=== PATIENT | male | born 2000 | race Caucasian/White ===

== ENCOUNTER 2022-08-23 23:25 | Emergency (ER) | payer OTHER ==
[2022-08-23] MEDS ORDERED: fentaNYL 50 MCG/ML SDV ONE (23:27)
[2022-08-23] MEDS ORDERED: Ketamine 500 mg/10 ML MDV ONE (23:27)
[2022-08-23] MEDS ORDERED: fentaNYL/Normal Saline 250 ML ONE (23:34)
[2022-08-23] MEDS ORDERED: fentaNYL 100 MCG/2 ML SDV ONE ×2 (23:35→23:36)
[2022-08-23 23:41] LABS: BASOPHILS PERCENT AUTO 0.2 % (0.0-1.5); EOSINOPHILS ABSOLUTE AUTO 0.1 K/uL (0.0-0.7); EOSINOPHILS PERCENT AUTO 0.5 % (0.0-7.0); HEMATOCRIT 46.2 % (38.0-50.0); HEMOGLOBIN 16.6 g/dL (13.0-17.0); LYMPHOCYTES ABSOLUTE AUTO 5.1 K/uL (0.6-2.4); MEAN CORPUSCULAR HEMOGLOBIN 31.5 pg (27.0-32.0); MEAN CORPUSCULAR HGB CONC 35.9 g/dL (31.0-37.0); MEAN CORPUSCULAR VOLUME 87.7 fL (80.0-98.0); MONOCYTES ABSOLUTE AUTO 0.7 K/uL (0.0-0.8); MONOCYTES PERCENT AUTO 5.2 % (0.0-15.0); NEUTROPHILS ABSOLUTE AUTO 6.9 K/uL (1.4-5.7); NEUTROPHILS PERCENT AUTO 54.1 % (48.0-80.0); NRBC ABSOLUTE 0 K/uL; PLATELET COUNT,PLT 233 K/uL (150-400); RED BLOOD CELL COUNT 5.27 M/uL (4.50-5.90); WHITE BLOOD CELL COUNT,WBC 12.74 K/uL (4.0-11.0)
[2022-08-23] MEDS ORDERED: Diphtheria/Tetanus Toxoids,Adult (Td) 0.5 ML Syringe IM ONE (23:42)
[2022-08-23 23:53] LABS: BILIRUBIN,URINE NEGATIVE (NEGATIVE); GLUCOSE,URINE 100 mg/dL (NEGATIVE); KETONES,URINE 15 mg/dL (NEGATIVE); LEUKOCYTE ESTERASE,URINE SMALL (NEGATIVE); NITRITE,URINE POSITIVE (NEGATIVE); OCCULT BLOOD,URINE LARGE (NEGATIVE); PH,URINE 7.5 (5.0-8.0); PROTEIN,URINE >=300 mg/dL (NEGATIVE)
[2022-08-23 23:54] LABS: A/G RATIO 1.2 (0.9-1.6); ALBUMIN 3.9 g/dL (3.4-5.0); BILIRUBIN TOTAL 0.4 mg/dL (0.2-1.0); CALCIUM 8.4 mg/dL (8.5-10.1); CARBON DIOXIDE,CO2 26.3 mmol/L (21.0-32.0); CREATININE 1.5 mg/dL (0.8-1.3); INR 1.02 (0.86-1.11); POTASSIUM,K 3.6 mmol/L (3.5-5.1); PROTEIN TOTAL,TP 7.1 g/dL (6.4-8.2)
[2022-08-23 23:58] LABS: LACTIC ACID 2.4 mmol/L (0.4-2.0)
[2022-08-24 00:03] LABS: APPEARANCE,URINE CLOUDY; COLOR,URINE RED
[2022-08-24 00:05] LABS: EST CRCL DRUG DOSING (CG) 79.76 mL/min
[2022-08-24 00:05] LABS: AMPHETAMINES SCREEN, URINE NEGATIVE (CUTOFF=500); BARBITURATE SCREEN,URINE NEGATIVE (CUTOFF=200); BENZODIAZEPINES SCREEN,URINE NEGATIVE (CUTOFF=150); BUPRENORPHINE SCREEN,URINE NEGATIVE (CUTOFF=10); METHADONE SCREEN, URINE NEGATIVE (CUTOFF=200); METHAMPHETAMINES SCREEN, URINE NEGATIVE (CUTOFF=500); OXYCODONE SCREEN,URINE NEGATIVE (CUT0FF=100); PCP SCREEN,URINE NEGATIVE (CUTOFF=25); PROPOXYPHENE SCREEN,URINE NEGATIVE (CUTOFF=300); THC SCREEN,URINE 20 NG/ML NEGATIVE (CUTOFF=50)
[2022-08-24 00:20] LABS: BACTERIA,URINE FEW (NEGATIVE); EPITHELIAL CELLS,URINE OCCASIONAL (NONE-FEW); RBC,URINE TOO NUMEROUS TO CT (0-2/HPF); WBC,URINE 0-5 (0-5/HPF)
[2022-08-24] MEDS ORDERED: Diphtheria,Pertussis(Acell),Tetanus Vaccine 0.5 ML Syringe ONE (00:23)
[2022-08-24 00:24] LABS: BASE EXCESS ARTERIAL -6.2 (-2.0-3.0); BICARBONATE,ARTERIAL 20 mEq/L (22-26); PCO2 ARTERIAL 38 mmHG (35-45)
[2022-08-24] MEDS ORDERED: fentaNYL/Normal Saline 2,500 MCG in Premix Bag 1 BAG IV PRN (00:26)
[2022-08-24 00:31] LABS: PO2 ARTERIAL > 488 mmHG (80-105)
[2022-08-24] MEDS ORDERED: fentaNYL 100 MCG/2 ML SDV IVPUSH ONE ×2 (00:32→07:37)
[2022-08-24] MEDS ORDERED: Ketamine 500 mg/10 ML MDV IV ONE (00:34)
[2022-08-24] MEDS ORDERED: Sodium Chloride 0.9% 1,000 ML IV STA (00:36)
[2022-08-24] MEDS ORDERED: Etomidate 2 MG/ML 20 ML SDV IVPUSH ONE (01:00)
[2022-08-24] MEDS ORDERED: Rocuronium 100 MG/10 ML MDV ONE (01:00)
[2022-08-24] MEDS ORDERED: fentaNYL 100 MCG/2 ML SDV ONE ×2 (01:48→03:12)
[2022-08-24] MEDS ORDERED: fentaNYL 100 MCG/2 ML SDV IVPUSH STA (01:49)
[2022-08-24] MEDS ORDERED: Propofol 200 MG/20 ML SDV ONE (01:51)
[2022-08-24] MEDS ORDERED: propofoL 100 ML ONE (01:51)
[2022-08-24] MEDS ORDERED: propofoL 100 ML IV SCH (02:00)
[2022-08-24] MEDS ORDERED: Propofol 200 MG/20 ML SDV IVPUSH ONE (07:41)
== END 2022-08-24 03:30 ==
LOC: MW.ED 23:25 → EDBD 23:25 → MW.ED 08-24 03:30
DX: S32.511A Fracture of superior rim of right pubis, initial encounter for closed fracture (principal); Z23 Encounter for immunization; V09.3XXA Pedestrian injured in unspecified traffic accident, initial encounter
CPT/HCPCS: 27250; 31500; 36415; 36600; 51702; 70450; 71045; 71260; 72125; 72170; 74177; 80053; 80305; 80307; 81001; 82803; 83605; 85025; 85610; 85730; 86850; 86900; 86901; 86920; 90471; 90715; 96365; 96366; 96375; 96376; 99291; G0390; J2704; J3010; J3490; J7030; 36430; 99292; P9016

== ENCOUNTER 2022-09-12 18:45 | Emergency (ER) | payer OTHER ==
[2022-09-12 19:49] LABS: APPEARANCE,URINE SLT CLOUDY; BILIRUBIN,URINE NEGATIVE (NEGATIVE); COLOR,URINE YELLOW; GLUCOSE,URINE NEGATIVE (NEGATIVE); KETONES,URINE NEGATIVE (NEGATIVE); LEUKOCYTE ESTERASE,URINE NEGATIVE (NEGATIVE); NITRITE,URINE NEGATIVE (NEGATIVE); OCCULT BLOOD,URINE LARGE (NEGATIVE); PROTEIN,URINE 30 mg/dL (NEGATIVE)
[2022-09-12 20:02] LABS: AMORPHOUS SEDIMENT,URINE MODERATE (NEGATIVE); BACTERIA,URINE 2+ (NEGATIVE); CALCIUM OXALATE CRYSTALS,URINE FEW (NEGATIVE); EPITHELIAL CELLS,URINE RARE (NONE-FEW)
[2022-09-12] MEDS ORDERED: Sulfamethoxazole/Trimethoprim 800-160 MG Tab PO ONE (20:10)
== END 2022-09-12 20:45 | disposition home or self-care (01) ==
LOC: MW.ED 18:45
DX: N39.0 Urinary tract infection, site not specified (principal); Z79.899 Other long term (current) drug therapy
CPT/HCPCS: 81001; 99283; A9270

== ENCOUNTER 2022-09-30 14:05 | Emergency (ER) | payer OTHER | END 2022-09-30 17:05 | disposition home or self-care (01) | LOC: MW.ED 14:05 | DX: R10.2 Pelvic and perineal pain (principal); M54.50 Low back pain, unspecified | CPT/HCPCS: 99283 ==

== ENCOUNTER 2024-02-01 03:44 | Emergency (ER) | payer SELFPAY | END 2024-02-01 04:22 | LOC: MW.ED 03:44 | DX: Z02.89 Encounter for other administrative examinations (principal); F10.120 Alcohol abuse with intoxication, uncomplicated; F17.210 Nicotine dependence, cigarettes, uncomplicated; Z79.899 Other long term (current) drug therapy; Y90.9 Presence of alcohol in blood, level not specified | CPT/HCPCS: 99283 ==

== ENCOUNTER 2024-12-20 20:02 | Emergency (ER) | payer SELFPAY ==
[2024-12-20] MEDS: Orphenadrine 60 MG/2 ML Inj IM ONE (20:48)
[2024-12-20] MEDS: Ketorolac 30 MG/ML SDV IM ONE (20:48)
[2024-12-20] MEDS: Dexamethasone Sod Phos Preservative Free 10 MG/ML Vial IM ONE (20:49)
== END 2024-12-20 21:32 | disposition home or self-care (01) ==
LOC: MW.ED 20:02
DX: M51.26 Other intervertebral disc displacement, lumbar region (principal); Z75.3 Unavailability and inaccessibility of health-care facilities
CPT/HCPCS: 72128; 72131; 96372; 99283; A9270; J1100; J1885; J2360; 99284